=== PATIENT | female | born 1950 | race Caucasian/White ===

== ENCOUNTER 2024-02-12 08:33 | Inpatient (IN) ==
[~2024-02-12 08:33] MED LIST: Naloxone 0.4 mg VIAL 0.4 mg/ml 1 ml VIAL IV PRN
[2024-02-12] MEDS: Buffered Lidocaine 1% SYRIN 1 ml INTRADERM ONE (08:48)
[2024-02-12] MEDS ORDERED: Clindamycin 900 MG/50 **NS BAG 900 MG/50 ML BAG ONE (08:55)
[2024-02-12] MEDS ORDERED: Tranexamic Acid 1 GM/100ML BAG 2,000 MG/200 ML BAG IV ONE (08:56)
[2024-02-12] MEDS: Lactated Ringers 1000 ml BAG 1,000 ML IV SCH ×3 (09:09→22:11)
[2024-02-12 09:26] LABS: Rapid COVID-19 Molecular Undetected (Undetected)
[2024-02-12] MEDS ORDERED: Midazolam 2 mg/2 ml VIAL 1 mg/ml 2 ml VIAL (2 mg) ONE ×2 (09:30→12:21)
[2024-02-12] MEDS ORDERED: fentaNYL 100 mcg/2 ml 50 MCG/ML VIAL ONE ×4 (09:31→16:14)
[2024-02-12] MEDS ORDERED: Propofol 10 MG/ML 20 ML BTL ONE (09:32)
[2024-02-12] MEDS ORDERED: Lidocaine 2% PF 5 ML VIAL ONE (09:32)
[2024-02-12] MEDS ORDERED: Bupivacaine 0.25% SDV 30 ML ONE (10:34)
[2024-02-12] MEDS ORDERED: Dexamethasone IV 4 MG/ML VIAL 1 ml VIAL ONE (11:52)
[2024-02-12] MEDS ORDERED: Ondansetron 4 mg VIAL 2 MG/ML 2 ml VIAL ONE (11:52)
[2024-02-12] MEDS ORDERED: Rocuronium 50 mg VIAL 10 mg/ml 5 ml VIAL (50 mg) ONE (12:51)
[2024-02-12] MEDS ORDERED: Lactulose 30 ml UDC PO PRN ×2 (14:39→15:58)
[2024-02-12] MEDS ORDERED: Morphine 2 MG/ML SYRINGE IV PRN ×2 (14:39→15:58)
[2024-02-12] MEDS ORDERED: Calcium Carb (TUMS) 500 mg CHEW TAB PO PRN ×2 (14:39→15:58)
[2024-02-12] MEDS ORDERED: Magnesium Hydroxide LIQ 30 ML UDC PO PRN ×2 (14:39→15:58)
[2024-02-12] MEDS ORDERED: Ondansetron ODT 4 mg TAB 4 MG TAB PO PRN ×2 (14:39→15:58)
[2024-02-12] MEDS ORDERED: Ondansetron 4 mg VIAL 2 MG/ML 2 ml VIAL IV PRN ×2 (14:39→15:58)
[2024-02-12] MEDS: fentaNYL 100 mcg/2 ml 50 MCG/ML VIAL IV PRN (14:59)
[2024-02-12] MEDS ORDERED: Naloxone 0.4 mg VIAL 0.4 mg/ml 1 ml VIAL IV PRN ×2 (15:58→16:29)
[2024-02-12] MEDS ORDERED: HYDROmorphone 1 MG/1 ML SYRINGE ONE (16:25)
[2024-02-12] MEDS: HYDROmorphone 1 MG/1 ML SYRINGE IV PRN (16:32)
[2024-02-12] MEDS: BUPIVACAINE **LIPOSOME/PF 13.3 MG/ML (266MG/ 20ML) VIAL (RESTRICTED) INFIL ONE (17:40)
[2024-02-12] MEDS: Clindamycin 900 MG/D5W BAG IVPB ONE (17:41)
[2024-02-12] MEDS ORDERED: Metoprolol Tartrate 5 mg VIAL 5 ml VIAL (1 mg/ml) IV PRN (19:43)
[2024-02-12] MEDS: Magnesium Hydroxide LIQ 30 ML UDC PO SCH (20:02)
[2024-02-12] MEDS ORDERED: Magnesium Hydroxide LIQ 30 ML UDC PO SCH (21:00)
[2024-02-12] MEDS: Clindamycin 900 MG/D5W BAG 900 MG/50 ML BAG IVPB SCH ×2 (21:16→22:11)
[2024-02-13] MEDS: Vitamin THERAPEUTIC TAB PO SCH (08:23)
[2024-02-13] MEDS ORDERED: Vitamin THERAPEUTIC TAB PO SCH (09:00)
[2024-02-13 09:10] LABS: Hematocrit 32.7 % (35-45); Hemoglobin 11.4 g/dL (11.5-14.3); Mean Platelet Volume 7.6 fL (7.5-11.2); Platelet Count 317 10^3/uL (150-450)
[2024-02-13 09:28] LABS: Calcium 8.6 mg/dL (8.6-10.3); Creatinine, Serum 0.98 mg/dL (0.51-0.95); Potassium 4.1 mmol/L (3.5-5.0); eGFR CKD-EPI 61.3 (>60)
[2024-02-13 09:52] VITALS: BP 124/53
== END 2024-02-13 13:50 | disposition home or self-care (01) | DRG 470 ==
LOC: SSU 08:33 → OR 08:33
PROVIDERS: ADMIT Orthopaedic Surgery Sports Medicine; ATTEND Orthopaedic Surgery Sports Medicine